=== PATIENT | male | born 1940 | race Caucasian/White ===

== ENCOUNTER 2016-11-06 11:54 | Emergency (ER) | payer OTHER, BC ==
[2016-11-06 12:23] VITALS: TEMP 98.6
[2016-11-06 12:55] LABS: INR 2.29 (0.83-1.16)
--- NOTE | 2016-11-06 13:32 | UCPHY ---
H & P Patient Type: Established Chief Complaint Nursing Narrative: skin tear to left upper arm, raised purple "blisters" to BL lower arms. Last InR 10/27 was 2.8 Time Seen by Provider: 11/06/16 12:37 HPI/ROS: Chief complaint: Skin tear, on Coumadin HPI: 76-year-old male on anticoagulation for mechanical valve replacement had a fall 3 days ago while he was traveling in [place]. He sustained a small skin tear to his left upper extremity is got bruising on his bilateral arms. He is presenting to Urgent Care today at the request of his doctors for evaluation of his INR. Patient states that he has had some worsening bruising on his arms. He did not hit his head. Does not have a loss of consciousness. Denies any headache. No other injuries. No chest pain or shortness of breath no abdominal pain. No other extremity injuries. ROS: 10 point Review of Systems is negative except as noted in the HPI. Past medical history: Mechanical valve replacement Medications: Coumadin Allergies: Latex, adhesive tape Physical exam: Gen: Awake, Alert, No Distress HEENT: Nose: no rhinorrhea Eyes: PERRLA, EOMI Mouth: Moist mucosa Neck: Supple, no JVD Chest: nontender, lungs clear to auscultation Heart: S1, S2 normal, no murmur Abd: Soft, non-tender, no guarding Back: no CVA tenderness, no midline tenderness Ext: no edema, left upper arm he has got a small 2 cm well-healing skin tear without any active bleeding. There is no erythema or discharge. Bilateral forearms have small areas of up to 1 cm of ecchymosis without active bleeding. There is no erythema. There is no warmth. No evidence of infection. Skin: no rash Neuro: CN II-XII intact, Sensation grossly intact, Strength 5/5 in bilateral upper and lower extremities - Personal History Tetanus Vaccine Date: unknown - Medical/Surgical History Hx Asthma: No Hx Chronic Respiratory Disease: No Hx Diabetes: No Hx Cardiac Disease: Yes Hx Renal Disease: No Hx Cirrhosis: No Hx Alcoholism: No Hx HIV/AIDS: No Hx Splenectomy or Spleen Trauma: No Other PMH: HTN, high cholesterol, Seizures, Anxiety. Aortic Valve replacement X2, Mitral valve repair AND REPLACEMENT, L TKR, Lumbar fusion L3-L5, Hernia repair x2. BLOOD CLOT IN VENTRICLE, anemia, PNEUMONIA, hypothyroid, home 02 - Family History Significant Family History: No pertinent family hx - Social History Smoking Status: Former smoker Constitutional: Initial Vital Signs Temperature (C) 37 C 11/06/16 12:20 Heart Rate 63 11/06/16 12:20 Respiratory Rate 16 11/06/16 12:20 O2 Sat (%) 99 11/06/16 12:20 O2 Delivery Mode Room Air Allergies/Adverse Reactions: latex [Latex] Allergy (Intermediate, Verified 11/06/16 12:19) Rash adhesive tape Allergy (Verified 11/06/16 12:19) Home Medications: Medication Instructions Recorded Atorvastatin Calcium [Lipitor 10 10 mg PO HS 02/09/15 mg (*)] Escitalopram Oxalate [Lexapro] 40 mg PO DAILY 02/09/15 Furosemide [Lasix 40 MG (*)] 20 mg PO BID@08,12 02/09/15 Levothyroxine [Synthroid 50 mcg 50 mcg PO DAILY06 02/09/15 (*)] Pantoprazole Sodium [Protonix 40mg 40 mg PO DAILY@0702/09/15 (*)] Spironolactone [Aldactone 25 MG 25 mg PO DAILY 02/09/15 (*)] Tamsulosin HCl [Flomax 0.4 MG (*)] 0.4 mg PO DAILY 02/09/15 Warfarin Sodium [Coumadin 2.5MG 1.25 mg PO MOWEFRSA@16 02/09/15 (*)] Warfarin Sodium [Coumadin 2.5MG 2.5 mg PO SUTUTH@16 02/09/15 (*)] Zolpidem Tartrate [Ambien 10 mg] 10 mg PO HS 02/09/15 lamOTRIGine [Lamotrigine] 100 mg PO DAILY@08 02/09/15 lamOTRIGine [Lamotrigine] 150 mg PO DAILY@18 02/09/15 ASPIRIN 11/06/16 FOLIC ACID 11/06/16 Oxygen 11/06/16 Medical Decision Making ED Course/Re-evaluation: 76-year-old male with a skin tear and ecchymosis on his arm secondary to fall several days ago. Patient is on Coumadin. His INR is 2.29 today. No evidence of any active bleeding at this time. His wounds have been dressed. They are healing well. He he will follow up with his primary care physician regarding his Coumadin management. - Data Points Laboratory Results: 11/06/16 12:39 PT 25.0 SEC H SEC (12.0-15.0) INR 2.29 H (0.83-1.16) Departure - Departure Disposition: Home, Routine, Self-Care Clinical Impression: Skin tear Condition: Good Instructions: Contusion in Adults (ED), Skin Tear (ED) Additional Instructions: Follow up with your doctor for management of your anticoagulation. Return to the emergency department for increased bruising or bleeding, increased pain, weakness, or any other concerns. Referrals: Aguila Escalante MD [Primary Care Provider] - As per Instructions - PQRS PQRS Measurement: 134: Depression screening and followup, PRIME MD-PHQ2 (12 years and older) Over the last 2 weeks, how often have you been bothered by any of the following problems? 1. Feeling down, depressed, or hopeless? 2. Little interest or pleasure in doing things? Patient answered no to both 1 and 2 130: Documentation of medications. Reviewed all patient medications, doses, route and frequency. 226: Do you smoke? No. 47: 65 and older: Advanced care planning. Patient designates surrogate decision maker as spouse . 51: 18 years old and older with diagnosis of COPD, spirometry performance. Patient has no history of COPD 52: 18 years old and older with COPD and symptoms of COPD or FEV1<60% predicted prescribed a B Agonist. Spirometry not performed; equipment not available.
[2016-11-06 14:23] VITALS: BP 145/80; PULSE 61; RESP 18; O2SAT 95
== END 2016-11-06 13:45 | disposition home or self-care (01) ==
LOC: CED 11:54
DX: S41.102A Unspecified open wound of left upper arm, initial encounter (principal); S40.021A Contusion of right upper arm, initial encounter; S40.022A Contusion of left upper arm, initial encounter; I10 Essential (primary) hypertension; E78.00 Pure hypercholesterolemia, unspecified; R56.9 Unspecified convulsions; F41.9 Anxiety disorder, unspecified; D64.9 Anemia, unspecified; E03.9 Hypothyroidism, unspecified; W19.XXXA Unspecified fall, initial encounter; Z79.01 Long term (current) use of anticoagulants; Z86.718 Personal history of other venous thrombosis and embolism; Z87.891 Personal history of nicotine dependence
CPT/HCPCS: 85610-PO; 99214-PO; G0463-PO

== ENCOUNTER 2017-03-09 09:03 | Emergency (ER) | payer OTHER, BC ==
--- NOTE | 2017-03-09 09:09 | EDPHY ---
H & P Time Seen by Provider: 03/09/17 09:08 HPI/ROS: CHIEF COMPLAINT: Right knee pain, can't walk on it HISTORY OF PRESENT ILLNESS: Patient injured it 2 weeks ago while weight lifting. He was seen at Dr. Rizvi's office 2 days later and was evaluated, discharge including muscle relaxant. Today presents with worsening knee pain and swelling and can' t walk or weight bear on it. He states that his initial injury was sustained when he was doing knee extensions on the machine. Today he has swelling, superior and medial to the patella on the right, pain with extending his leg. REVIEW OF SYSTEMS: Eye: no change in vision ENT: no sore throat Cardiac: no chest pain or syncope Pulmonary: no cough or SOB Abdomen: no vomiting, diarrhea, abdominal pain Musculoskeletal: HPI Skin: no rash Neuro: no headache Constitutional: no fever : no urinary symptoms A comprehensive 10 point review of systems is otherwise negative aside from elements mentioned in the history of present illness. PAST MEDICAL HISTORY: Heart valve replacement on warfarin, hypertension, hypercholesterolemia, anxiety, left total knee replacement and lumbar spine surgery, hernia repair, thyroid. Social history: , here with his General Appearance: Alert and conversant, cooperative. Eyes: No scleral icterus. ENT, Mouth: Normal mucous membranes. Respiratory: Normal respiratory effort, breath sounds equal, lungs are clear to auscultation. Cardiovascular: Irregular rate with valve sound heard. Gastrointestinal: Abdomen is soft and non tender. Neurological: Alert and oriented x3. Normally conversant. Face symmetric, normal movement and sensation in all extremities. Skin: Warm and dry, no rashes. No bruising over the knee. Musculoskeletal: Right knee has swelling almost all of it in the suprapatellar region medially. He can extend his knee to 180 and flex but not to 90 degrees because of pain. He is able to actively extend the knee and lift the heel off the bed. No bony or joint line tenderness. Compartments are soft and both thigh and calf. Psychiatric: Not agitated. Emergency Department course/MDM: Patient likely has supra patellar or quadriceps muscle hematoma with extension injury and on warfarin with therapeutic INR for his heart valve. 1040: Called Orthopedics to speak with Dr. Rizvi, but the answering service said he is out of town and I should speak with the on-call physician. 1045: Discussed with Skyla Garcia, recommended knee immobilizer and office followup this week. Smoking Status: Former smoker Constitutional: Initial Vital Signs Temperature (C) 36.8 C 03/09/17 09:03 Heart Rate 58 L 03/09/17 09:03 Respiratory Rate 16 03/09/17 09:03 Blood Pressure 126/58 H 03/09/17 09:03 O2 Sat (%) 98 03/09/17 09:03 O2 Delivery Mode Room Air Allergies/Adverse Reactions: latex [Latex] Allergy (Intermediate, Verified 11/06/16 12:19) Rash adhesive tape Allergy (Verified 11/06/16 12:19) Home Medications: Medication Instructions Recorded Atorvastatin Calcium [Lipitor 10 10 mg PO HS 02/09/15 mg (*)] Escitalopram Oxalate [Lexapro] 40 mg PO DAILY 02/09/15 Furosemide [Lasix 40 MG (*)] 20 mg PO BID@08,12 02/09/15 Levothyroxine [Synthroid 50 mcg 50 mcg PO DAILY06 02/09/15 (*)] Pantoprazole Sodium [Protonix 40mg 40 mg PO DAILY@0702/09/15 (*)] Spironolactone [Aldactone 25 MG 25 mg PO DAILY 02/09/15 (*)] Tamsulosin HCl [Flomax 0.4 MG (*)] 0.4 mg PO DAILY 02/09/15 Warfarin Sodium [Coumadin 2.5MG 1.25 mg PO MOWEFRSA@16 02/09/15 (*)] Warfarin Sodium [Coumadin 2.5MG 2.5 mg PO SUTUTH@02/09/15 (*)] Zolpidem Tartrate [Ambien 10 mg] 10 mg PO HS 02/09/15 lamOTRIGine [Lamotrigine] 100 mg PO DAILY@08 02/09/15 lamOTRIGine [Lamotrigine] 150 mg PO DAILY@18 02/09/15 ASPIRIN 11/06/16 FOLIC ACID 11/06/16 Oxygen 11/06/16 oxyCODONE/APAP 5/325 [Percocet] 1 tab PO Q4-6PRN PRN #7 tab 03/09/17 Medical Decision Making - Diagnostics Imaging Results: Imaging Impressions Knee X-Ray 03/09/17 09:08 Impression: 1. Large suprapatellar knee joint effusion. 2. Possible chip avulsion fracture from the lower pole of the patella. 3. Mild chondrocalcinosis and medial compartment joint space narrowing. Differential Diagnosis: Differential considered including but not limited to infected knee joint, muscular hematoma, suprapatellar joint effusion, fracture. - Data Points Laboratory Results: Laboratory Results 03/09/17 09:10 03/09/17 03/09/17 09:10 09:10 WBC 7.54 10^3/uL 10^3/uL (3.80-9.50) RBC 4.64 10^6/uL 10^6/uL (4.40-6.38) Hgb 13.7 g/dL g/dL (13.7-17.5) Hct 41.6 % % (40.0-51.0) MCV 89.7 fL fL (81.5-99.8) MCH 29.5 pg pg (27.9-34.1) MCHC 32.9 g/dL g/dL (32.4-36.7) RDW 14.1 % % (11.5-15.2) Plt Count 238 10^3/uL 10^3/uL (150-400) MPV 9.4 fL fL (8.7-11.7) Neut % (Auto) 66.8 % % (39.3-74.2) Lymph % (Auto) 17.8 % % (15.0-45.0) Frio % (Auto) 9.4 % % (4.5-13.0) Eos % (Auto) 4.8 % % (0.6-7.6) Baso % (Auto) 0.4 % % (0.3-1.7) Nucleat RBC Rel Count 0.0 % % (0.0-0.2) Absolute Neuts (auto) 5.04 10^3/uL 10^3/uL (1.70-6.50) Absolute Lymphs (auto) 1.34 10^3/uL 10^3/uL (1.00-3.00) Absolute Monos (auto) 0.71 10^3/uL 10^3/uL (0.30-0.80) Absolute Eos (auto) 0.36 10^3/uL 10^3/uL (0.03-0.40) Absolute Basos (auto) 0.03 10^3/uL 10^3/uL (0.02-0.10) Absolute Nucleated RBC 0.00 10^3/uL 10^3/uL (0-0.01) Immature Gran % 0.8 % % (0.0-1.1) Immature Gran # 0.06 10^3/uL 10^3/uL (0.00-0.10) PT 37.4 SEC H SEC (12.0-15.0) INR 3.71 H (0.83-1.16) Medications Given: Discontinued Medications Oxycodone HCl (Oxycodone Ir) 5 mg PO EDNOW ONE Stop: 03/09/17 11:10 Last Admin: 03/09/17 11:24 Dose: 5 mg Departure - Departure Disposition: Home, Routine, Self-Care Clinical Impression: Knee effusion, right Condition: Good Instructions: Knee Immobilizer (ED) Additional Instructions: Crutches, limited weight-bearing. Your INR today is 3.71 Please follow-up this week with Dr. Garcia as per the office Dr. Rizvi is out of town for the next several weeks. Referrals: Debbie Rizvi MD [Medical Doctor] - As per Instructions Terry Garcia MD [Medical Doctor] - As per Instructions Prescriptions: oxyCODONE/APAP 5/325 [Percocet] 1 tab PO Q4-6PRN PRN #7 tab PRN Reason: Pain
[2017-03-09 09:21] VITALS: RESP 16; TEMP 98.2
[2017-03-09 09:25] LABS: % IMMATURE GRANULYOCYTES 0.8 % (0.0-1.1); ABSOLUTE IMMATURE GRANULOCYTES 0.06 10^3/uL (0.00-0.10); ADD DIFF? NO; ADD MORPH? NO; ADD SCAN? NO; ATYPICAL LYMPHOCYTE FLAG 10 (0-99); FRAGMENT RBC FLAG 0 (0-99); HEMATOCRIT 41.6 % (40.0-51.0); HEMOGLOBIN 13.7 g/dL (13.7-17.5); LEFT SHIFT FLG 0 (0-99); LIPEMIA HEMOLYSIS FLAG 80 (0-99); MEAN CELL HEMOGLOBIN 29.5 pg (27.9-34.1); MEAN CELL HEMOGLOBIN CONCENTR. 32.9 g/dL (32.4-36.7); MEAN CELL VOLUME 89.7 fL (81.5-99.8); MEAN PLATELET VOLUME 9.4 fL (8.7-11.7); PLATELET CLUMPS FLAG 0 (0-99); PLATELET COUNT 238 10^3/uL (150-400); RED BLOOD CELL COUNT 4.64 10^6/uL (4.40-6.38); RED CELL DISTRIBUTION WIDTH 14.1 % (11.5-15.2)
[2017-03-09 09:34] LABS: INR 3.71 (0.83-1.16); PROTIME(PATIENT) 37.4 SEC (12.0-15.0)
[2017-03-09] MEDS ORDERED: oxyCODONE IR 5 MG TAB PO ONE (11:09)
[2017-03-09 11:40] VITALS: BP 103/92; PULSE 79; O2SAT 93
== END 2017-03-09 12:27 | disposition home or self-care (01) ==
LOC: EDUNIT#
DX: M25.461 Effusion, right knee (principal); Z79.01 Long term (current) use of anticoagulants; Z79.82 Long term (current) use of aspirin; Z87.891 Personal history of nicotine dependence; Z91.040 Latex allergy status
CPT/HCPCS: 73564; 99284; L1830

== ENCOUNTER → 2017-03-15 | Outpatient (CLI) | payer OTHER, BC | LOC: FIMAGING 13:44 | PROVIDERS: ATTEND Orthopaedic Surgery Foot and Ankle Surgery | DX: S70.11XA Contusion of right thigh, initial encounter (principal) ==

== ENCOUNTER 2017-04-07 09:26 | Emergency (ER) | payer OTHER, BC ==
[2017-04-07 09:39] VITALS: PULSE 52; RESP 18; TEMP 98.1
--- NOTE | 2017-04-07 10:06 | EDPHY ---
H & P Time Seen by Provider: 04/07/17 09:44 HPI/ROS: CHIEF COMPLAINT: Mechanical fall HISTORY OF PRESENT ILLNESS: 76-year-old male presents to the emergency department after he had ankle fall at home at 4:30 a.m. this morning. The patient states that he got up to use the urinal and he was standing using his walker and he lost his balance and fell landing on his right side. He is complaining of right low back pain and right hip pain. Patient states 2 months ago he sustained a quadriceps tendon tear in the right leg. He has been undergoing rehabilitation for that. He states that now he has had some pain and swelling in his right knee. He saw Dr. Peralta and is scheduled for an outpatient MRI of his right knee today. He is worried that he may have repeat toward his quadriceps muscle. He denies numbness or tingling in his toes. He has not tried to bear weight since his fall earlier this morning. He did not hit his head or lose consciousness. He denies any presyncopal symptoms prior to his fall. Denies chest pain or difficulty breathing. Denies abdominal pain. Denies neck pain. Denies paresthesias in upper or lower extremities. REVIEW OF SYSTEMS: Constitutional: No fever, no chills. Eyes: No double or blurry vision. ENT: No sore throat. Respiratory: No cough, no shortness of breath. Cardiac: No chest pain. Gastrointestinal: No abdominal pain, vomiting or diarrhea. Genitourinary: No dysuria. Musculoskeletal: Right low back pain as above. No neck pain. Skin: No rashes. Neurological: No headache. Past Medical/Surgical History: Hypertension, dyslipidemia, seizures, anxiety, aortic valve replacement, mitral valve repair and replacement, left knee replacement, lumbar fusion L3-L5, hernia repair, anemia, pneumonia, hypothyroidism, on anticoagulation-Coumadin, however this has been held since March 18 Social History: and lives in [place] Smoking Status: Former smoker Physical Exam: General Appearance: Alert, no distress. No visible signs of trauma to his head. He is mentating normally and answering questions appropriately. His is at bedside. Eyes: Pupils equal and round. Extraocular motions are all intact. ENT: Mouth: Mucous membranes moist. No dental injury or malocclusion. Respiratory: No wheezing, rhonchi, or rales, lungs are clear to auscultation. Cardiovascular: Irregularly regular rhythm. 3/6 systolic ejection murmur noted. Gastrointestinal: Abdomen is soft and nontender, no masses, no rebound or guarding, bowel sounds normal. Neurological: Alert and oriented x 3, cranial nerves II through XII grossly intact Skin: Warm and dry, no rashes. Musculoskeletal: Nontender to palpate along the cervical, thoracic or lumbar spine. Neck is supple. Well-healed surgical incision along the lumbar spine. He has reproducible pain with palpation just to the right lateral of his lower lumbar spine over iliac crest and right sacrum. Extremities: He has no pain with external and internal rotation of the right hip. He has some mild pain with palpation along the right anterior and lateral aspect of his right thigh. No ecchymosis or puncture wounds noted. He is unable to lift his right leg up without severe pain. Psychiatric: Patient is oriented X 3, there is no agitation. Constitutional: Initial Vital Signs Temperature (C) 36.7 C 04/07/17 09:36 Heart Rate 52 L 04/07/17 09:36 Respiratory Rate 18 04/07/17 09:36 Blood Pressure 93/52 L 04/07/17 09:36 O2 Sat (%) 96 04/07/17 09:36 O2 Delivery Mode Room Air Allergies/Adverse Reactions: latex [Latex] Allergy (Intermediate, Verified 04/07/17 09:34) Rash adhesive tape Allergy (Verified 04/07/17 09:34) Home Medications: Medication Instructions Recorded Atorvastatin Calcium [Lipitor 10 10 mg PO HS 02/09/15 mg (*)] Escitalopram Oxalate [Lexapro] 40 mg PO DAILY 02/09/15 Furosemide [Lasix 40 MG (*)] 20 mg PO BID@08,12 02/09/15 Levothyroxine [Synthroid 50 mcg 50 mcg PO DAILY06 02/09/15 (*)] Pantoprazole Sodium [Protonix 40mg 40 mg PO DAILY@0730 02/09/15 (*)] Spironolactone [Aldactone 25 MG 25 mg PO DAILY 02/09/15 (*)] Tamsulosin HCl [Flomax 0.4 MG (*)] 0.4 mg PO DAILY 02/09/15 Zolpidem Tartrate [Ambien 10 mg] 10 mg PO HS 07/04/15 lamOTRIGine [Lamotrigine] 100 mg PO DAILY@08 02/09/15 lamOTRIGine [Lamotrigine] 150 mg PO DAILY@18 02/09/15 ASPIRIN 11/06/16 FOLIC ACID 11/06/16 Oxygen 11/06/16 oxyCODONE/APAP 5/325 [Percocet] 1 tab PO Q4-6PRN PRN #7 tab 03/09/17 Medical Decision Making - Diagnostics Imaging Results: Imaging Impressions Femur X-Ray 04/07/17 10:01 Impression: 1. Mild degenerative changes about both hips. 2. No acute osseous abnormality seen about the pelvis with attention to the right hip as well as right femur. Hip X-Ray 04/07/17 10:01 Impression: 1. Mild degenerative changes about both hips. 2. No acute osseous abnormality seen about the pelvis with attention to the right hip as well as right femur. Sacrum and Coccyx X-Ray 04/07/17 10:01 Impression: Normal sacrum and coccyx series. Imaging: Discussed imaging studies w/ call center dispatcher Radiologist, I viewed and interpreted images myself ED Course/Re-evaluation: A 76-year-old male presents to the emergency department with right hip and low back pain after he fell earlier this morning. X-rays of the sacral spine, hip and pelvis and femur which all revealed no acute fractures. This is reviewed by myself as well as by the radiologist. The patient has a large effusion noted to his right knee which is chronic. This was attempted to be drained by the orthopedic surgeon recently. He is scheduled for an outpatient MRI today at 3:00 p.m.. He also has a history of a quadriceps tendon tear and he is concerned that he may have torn this again. I spoke with Nikki, the medical records manager working with Dr. Peralta who saw the patient yesterday in order the MRI, and they are aware that the patient had a mechanical fall at home and will also MRI of the patient's right thigh to further evaluate for a re-tear of the quadriceps tendon muscle. This was discussed with the patient and his at bedside who verbalized understanding and agreed. The patient was able to ambulate using a walker without any difficulties. I think he is comfortable being discharged home. Differential Diagnosis: Including but not limited to fracture, dislocation, contusion, sprain, quadriceps tendon tear Departure - Departure Disposition: Home, Routine, Self-Care Clinical Impression: History of ruptured quadriceps tendon Contusion of right hip Qualifiers: Encounter type: initial encounter Qualified Code(s): S70.01XA - Contusion of right hip, initial encounter Condition: Good Instructions: Contusion in Adults (ED), Hip Contusion (ED) Additional Instructions: Keep your scheduled MRI of your right knee. Tell them that we spoke with Dr. Peralta's medical records manager, Nikki, and they are aware that because of your fall earlier this morning they are going to MRI your right quadriceps muscle to evaluate for possible tear as well. Referrals: Aguila Escalante MD [Primary Care Provider] - As per Instructions Raheem Peralta MD [Medical Doctor] - As per Instructions
[2017-04-07 11:54] VITALS: BP 117/95; O2SAT 95
== END 2017-04-07 12:13 | disposition home or self-care (01) ==
DX: S70.01XA Contusion of right hip, initial encounter (principal); I10 Essential (primary) hypertension; Z87.39 Personal history of other diseases of the musculoskeletal system and connective tissue; Z79.82 Long term (current) use of aspirin; Z91.040 Latex allergy status; Z87.891 Personal history of nicotine dependence; W18.39XA Other fall on same level, initial encounter; Y92.009 Unspecified place in unspecified non-institutional (private) residence as the place of occurrence of the external cause; Y99.8 Other external cause status

== ENCOUNTER → 2017-07-14 | Outpatient (CLI) | payer OTHER, BC | LOC: BHFA 11:30 | PROVIDERS: ATTEND Internal Medicine Cardiovascular Disease | DX: I35.1 Nonrheumatic aortic (valve) insufficiency (principal); Z95.2 Presence of prosthetic heart valve ==

== ENCOUNTER → 2018-07-12 | Outpatient (CLI) | payer OTHER, BC | LOC: BHFA 10:00 | PROVIDERS: ATTEND Internal Medicine Cardiovascular Disease | DX: I48.91 Unspecified atrial fibrillation (principal) ==

== ENCOUNTER → 2018-07-26 | Outpatient (CLI) | payer OTHER, BC | LOC: CIMAGING 08:58 | PROVIDERS: ATTEND Internal Medicine | DX: R19.01 Right upper quadrant abdominal swelling, mass and lump (principal) | CPT/HCPCS: 76700-PO ==

== ENCOUNTER → 2018-09-28 | Outpatient (CLI) | payer OTHER, BC | LOC: FIMAGING 11:28 | PROVIDERS: ATTEND Physician Assistant | DX: M21.70 Unequal limb length (acquired), unspecified site (principal) ==